=== PATIENT | female | born 1955 | race Caucasian/White ===

== ENCOUNTER → 2018-03-15 | Outpatient (CLI) | payer OTHER ==
[~2018-03-15] MED LIST: CETI5; CETI5 PO; CIPR500 PO; Cipro500 MG PO; DIPATR PO; Diflucan150 MG PO; FLUSAL1005; FLUSAL2505 IH; IBUP400 PO; LEVFLO500; METR500; MONT10T PO; OTC ALLERGY MED; PROM25 PO; SALM50IP IH; SULTRIDS PO
== END | disposition home or self-care (01) ==
LOC: LAB SHORT 13:27 → PLD 13:27
DX: D22.61 Melanocytic nevi of right upper limb, including shoulder (principal)
CPT/HCPCS: 88305

== ENCOUNTER → 2018-03-15 | Outpatient (CLI) | payer OTHER ==
[2018-03-15 14:23] LABS: Bilirubin, Urine Neg (Neg); Blood, Urine Neg (Neg); Glucose Qualitative, Urine Neg (Neg); Ketones, Urine Neg (Neg); Leukocyte Esterase, Urine Neg (Neg); Nitrite, Urine Neg (Neg); Protein, Urine Neg (Neg); Urobilinogen, Urine NORM (Normal)
[2018-03-15 14:40] LABS: Appearance, Urine Clear (Clear); Color, Urine Pale Yellow (P-Yellow)
== END ==
LOC: LAB SHORT 12:40 → OLS 12:40
PROVIDERS: Internal Medicine
DX: R31.21 Asymptomatic microscopic hematuria (principal)
CPT/HCPCS: 81003

== ENCOUNTER → 2022-08-16 | Outpatient (CLI) | payer MEDICARE, OTHER ==
[2022-08-16 09:12] LABS: BASOPHILS ABSOLUTE AUTO 0.05 K/mm3 (0.00-0.23); BASOPHILS PERCENT AUTO 1 % (0-2); EOSINOPHILS ABSOLUTE AUTO 0.19 K/mm3 (0.00-0.68); EOSINOPHILS PERCENT AUTO 2 % (0-6); Hemoglobin 13.1 g/dL (11.5-16.0); IMMATURE GRAN ABSOLUTE AUTO 0.02 K/mm3 (0.00-0.10); IMMATURE GRAN PERCENT AUTO 0 % (0-1); LYMPHOCYTES ABSOLUTE AUTO 1.63 K/mm3 (0.84-5.20); LYMPHOCYTES PERCENT AUTO 19 % (21-46); MONOCYTES ABSOLUTE AUTO 0.57 K/mm3 (0.16-1.47); MONOCYTES PERCENT AUTO 7 % (4-13); Mean Corpuscular HGB 30.1 pg (26.0-34.0); Mean Corpuscular HGB Conc 32.8 g/dL (31.5-36.5); Mean Corpuscular Volume 92 fL (80-100); Mean Platelet Volume 10.4 fL (9.1-12.4); NEUTROPHILS ABSOLUTE AUTO 6.07 K/mm3 (1.96-9.15); NEUTROPHILS PERCENT AUTO 71 % (41-73); Platelet Count 244 K/mm3 (150-400); RDW Coefficient Variation 12.3 % (11.7-14.2); RDW Standard Deviation 41.6 fL (35.1-46.3); Red Blood Cell Count 4.35 M/mm3 (3.80-5.20); White Blood Cell Count 8.53 K/mm3 (4.00-11.30)
== END | disposition home or self-care (01) ==
LOC: LAB 08:07 → LAB SHORT 08:07
PROVIDERS: Physician Assistant
DX: R10.9 Unspecified abdominal pain (principal)
CPT/HCPCS: 85025; 86140

== ENCOUNTER 2024-06-20 07:22 | Day surgery (SDC) | payer MEDICARE, OTHER ==
[~2024-06-20] VITALS: Ht 157.5 cm; Wt 64.2 kg
[~2024-06-20 07:22] MED LIST changes: +Balanced Salt Solution 15ML ONE; +Erythromycin 0.5% Opth Oint 1 gm ONE; +NS 500 ML IV ONE
[2024-06-20] MEDS ORDERED: NS 500 ML IV ONE (07:46)
--- NOTE | 2024-06-20 07:46 | NUR ---
06/20/24 0746 Micheline Rendon CALL LIGHT WITHIN REACH.
[2024-06-20] MEDS ORDERED: propofoL 20 ML IV ONE (08:10)
[2024-06-20] MEDS ORDERED: Sugarcaine Ophth Soln 3 mL SYR BOTHEYES ONE (08:46)
[2024-06-20] MEDS ORDERED: Bupivacaine 0.75% Inj 30 ML Vial INJ ONE (08:47)
[2024-06-20] MEDS ORDERED: Lidocaine 2%-Epineph 1:100000 20 ML MDV INJ ONE (08:47)
[2024-06-20 09:17] VITALS: BP 123/68
== END 2024-06-20 09:45 | disposition home or self-care (01) ==
LOC: ORSCSDS 07:22
PROVIDERS: Ophthalmology
PROC: 080NXZZ Alteration of Right Upper Eyelid, External Approach (ICD-10-PCS; principal; 2024-06-20 08:30)
PROC: 080PXZZ Alteration of Left Upper Eyelid, External Approach (ICD-10-PCS; principal; 2024-06-20 08:30)
DX: H02.831 Dermatochalasis of right upper eyelid (principal); H02.834 Dermatochalasis of left upper eyelid; Z86.73 Personal history of transient ischemic attack (TIA), and cerebral infarction without residual deficits; J45.909 Unspecified asthma, uncomplicated; Z79.899 Other long term (current) drug therapy
CPT/HCPCS: A9270; J2704; J7040